=== PATIENT | female | born 1950 | race Caucasian/White ===

== ENCOUNTER → 2018-04-24 | Outpatient (CLI) | payer MEDICARE, BC ==
--- NOTE | 2018-04-24 13:29 | CT ---
EXAMINATION TYPE: CT abdomen pelvis wo con DATE OF EXAM: 04/24/2018 COMPARISON: NONE HISTORY: Renal stones CT DLP: 205.3 mGycm Automated exposure control for dose reduction was used. TECHNIQUE: Helical acquisition of images was performed from the lung bases through the pelvis. FINDINGS: Lack of intravenous and oral contrast limits evaluation of both the hollow and solid viscer a. LUNG BASES: Subsegmental atelectasis is seen at the lung bases. LIVER/GB: No significant abnormality is appreciated. Gallbladder is surgically absent. PANCREAS: No significant abnormality is seen. SPLEEN: No significant abnormality is seen. ADRENALS: No significant abnormality is seen. KIDNEYS: There is multiple obstructing left mid ureteral calculi that are fragmented but appear to be up to 6-7 in number (measuring up to 4 mm) on coronal series 6 images 37 and 36. This results in sev ere left hydroureteronephrosis and uroepithelial thickening, likely reactive. There is also a hairpin turn of the proximal left ureter and mild cortical renal thinning on the left in comparison to the r ight suggesting a chronic component of obstruction versus prior injury. Multiple other nonobstructing left-sided renal calculi measure 1.1 cm in the upper pole, 9 mm in the left upper pole, 4 mm in the left mid pole, and punctate calculi within the upper pole measuring 1 to 2 mm.On the right multiple nonobstructing calculi are seen in the upper pole measuring 2 mm, mid lorene e measuring 5 mm, mid pole measuring 1 to 2 mm, and lower pole measuring 1.2 cm and 1 to 2 mm. No rig ht-sided hydronephrosis. FREE AIR: None. ADENOPATHY: No greater than 1 cm short axis lymph nodes are seen within the abdomen or pelvis. OSSEOUS STRUCTURES: Multilevel degenerative changes of the thoracolumbar spine with Schmorl's node o f the superior endplate of L5. BOWEL: Diffuse gastric fold thickening may relate to incomplete distention or gastritis and is incom pletely evaluated with lack of oral contrast. Appendix is air-filled and within normal limits of size . Scattered colonic diverticula are seen without pericolonic fat stranding. Narrowing within the sigm oid colon likely relates to peristalsis rather than stricture. Moderate amount retained colonic stool is seen throughout, further limiting evaluation of the bowel. No small bowel dilatation. OTHER: Mild calcific atheromatous changes are seen of the abdominal aorta and its branches. IMPRESSION: MULTIPLE SUBCENTIMETER OBSTRUCTING LEFT MID URETERAL CALCULI (UP TO 6-7 IN NUMBER, MEASURING UP TO 4 MM) CREATING SEVERE LEFT HYDROURETERONEPHROSIS WITH CHRONIC OBSTRUCTIVE COMPONENT SUSPECTED THERE IS SLIGHT RENAL PARENCHYMAL ATROPHY. UROEPITHELIAL THICKENING IS LIKELY REACTIVE. MULTIPLE BILATERAL NONOBSTRUCTING RENAL CALCULI ARE ADDITIONALLY SEEN DESCRIBED ABOVE.
== END | disposition home or self-care (01) ==
LOC: RADCTMAIN 12:17
PROVIDERS: ATTEND Urology
DX: N20.0 Calculus of kidney (principal); N26.1 Atrophy of kidney (terminal); Z88.8 Allergy status to other drugs, medicaments and biological substances
CPT/HCPCS: 74176

== ENCOUNTER 2018-04-28 07:32 | Day surgery (SDC) | payer MEDICARE, BC ==
[~2018-04-28 07:32] MED LIST: Pre Op ABX Message 1 EACH MISC MISCELLANE ONE
[2018-04-28 08:18] VITALS: RESP 16; TEMP 97.7
[2018-04-28] MEDS ORDERED: LIDOCAINE 1% 20 ML VIAL (10MG/ML) FOR IV START INTRADERMA ONE (08:25)
[2018-04-28] MEDS ORDERED: LACTATED RINGERS 1,000 ML IV ONE (08:25)
--- NOTE | 2018-04-28 08:51 | XR ---
EXAMINATION TYPE: XR KUB DATE OF EXAM: 04/28/2018 COMPARISON: 04/24/2018 HISTORY: Renal calculi TECHNIQUE: One view abdominal series FINDINGS: The osseous structures are intact. The bowel gas pattern is nonspecific. Right kidney: There are 5 calcifications overlying the right kidney the largest measuring 8 mm. Left kidney: There are 6 calcifications overlying the left kidney largest measuring 1.1 cm. Calcifications in the pelvis are likely vascular. There is a calcification along the left paraspinal line at the L4-L5 level and disc interspace measuring 3 mm in diameter could been the course of the l eft ureter. IMPRESSION: 1. Bilateral nephrolithiasis. 2. Possible left ureteral calculus adjacent to the L4-L5 disc space level measuring 3 mm in diameter.
[2018-04-28] MEDS ORDERED: ONDANSETRON 4 MG/2 ML VIAL IVP STA (09:21)
[2018-04-28] MEDS ORDERED: KETAMINE 10 MG/ML 20 ML VIAL ONE (09:31)
[2018-04-28] MEDS ORDERED: fentaNYL (PF) 50 MCG/ML 2 ML AMP ONE (09:31)
[2018-04-28] MEDS ORDERED: MIDAZOLAM 2 MG/2 ML VIAL ONE (09:31)
[2018-04-28] MEDS ORDERED: PROPOFOL 10 MG/ML 20 ML VIAL IV ONE (09:31)
--- NOTE | 2018-04-28 10:22 | P.OP ---
Date of Procedure: 04/28/18 Preoperative Diagnosis: Left ureteral calculi Postoperative Diagnosis: Left ureteral calculi Procedure(s) Performed: Extracorporal shockwave lithotripsy Anesthesia: MAC Surgeon: Salas Gamboa Estimated Blood Loss (ml): 0 Pathology: none sent Condition: stable Disposition: PACU Indications for Procedure: The patient is a 68-year-old female with a history of recurrent episodes of urolithiasis who was last treated with ESWL at [facility] approximally 2 years ago. She was recently noted to have a rise in her creatinine and a renal ultrasound identified moderately severe left hydronephrosis. Computed tomography scan on 04/24/2018 confirmed moderate to severe hydroureteronephrosis on the left secondary to multiple calculi in the mid left ureter which measure approximately 4-5 x 2.4 cm in aggregate. Treatment options were reviewed and the patient has elected to proceed with ESWL. Description of Procedure: The patient was taken the operating suite where adequate intravenous sedation was given. She was placed on the fluoroscopy table and the calculi in the mid left ureter were localized using biplanar fluoroscopy. Lithotripsy was performed using the Dornier compact delta unit. She received 3000 shocks at level 6 at a rate of 80 shocks per minute. There appeared to be good fragmentation of the calculi. the patient tolerated the patient well and left the operating room in satisfactory condition. She will be seen in 1 week at which time a KUB will be repeated.
[2018-04-28 11:11] VITALS: BP 173/79; PULSE 63
== END 2018-04-28 11:48 | disposition home or self-care (01) ==
LOC: ORWHC2ENDO 07:32
PROVIDERS: ATTEND Urology
DX: N13.2 Hydronephrosis with renal and ureteral calculous obstruction (principal); N28.1 Cyst of kidney, acquired; N17.9 Acute kidney failure, unspecified; E78.5 Hyperlipidemia, unspecified; K21.9 Gastro-esophageal reflux disease without esophagitis; G25.81 Restless legs syndrome; Z87.442 Personal history of urinary calculi; Z79.899 Other long term (current) drug therapy; Z88.3 Allergy status to other anti-infective agents; Z87.891 Personal history of nicotine dependence
CPT/HCPCS: 74018; 50590; J2250; J2405; J3010; J2704

== ENCOUNTER → 2018-05-05 | Outpatient (CLI) | payer MEDICARE, BC ==
--- NOTE | 2018-05-05 14:04 | XR ---
Abdomen HISTORY: Calculus of the left ureter, post lithotripsy 1 week Frontal view of the abdomen submitted and correlated to prior exam 04/28/2018 Bilateral renal calcifications are again noted. Overlying bowel gas may obscure some detail. Surgical clips again noted in the right upper quadrant. Multiple calcifications again noted within the pelvis . The previously identified calcification in the paraspinal location at L4-5 level on the left is no longer seen compatible with post lithotripsy change. No other significant interval finding. IMPRESSION: Status post lithotripsy as described. Bilateral nephrolithiasis.
== END | disposition home or self-care (01) ==
LOC: RADXRMAIN 12:00
PROVIDERS: ATTEND Urology
DX: N20.0 Calculus of kidney (principal); Z98.890 Other specified postprocedural states
CPT/HCPCS: 74018